=== PATIENT | female | born 1950 | race Caucasian/White ===

== ENCOUNTER → 2018-02-16 | Outpatient (CLI) | payer OTHER ==
[~2018-02-16] MED LIST: ALBUTEROL INH IH; FISH OIL 1,0001 EAC5 PO; LOVASTAT20 PO; SPIRIVA IH; SYMBICORT160 MCG/4. IH; VENTOLIN HFA INH8 GM INH; VITAMIN D32000 UNIT PO
== END ==
LOC: RAD 00:32
DX: Z12.31 Encounter for screening mammogram for malignant neoplasm of breast (principal)

== ENCOUNTER → 2019-02-23 | Outpatient (CLI) | payer OTHER | LOC: RAD 10:09 | DX: Z12.31 Encounter for screening mammogram for malignant neoplasm of breast (principal) ==

== ENCOUNTER → 2019-02-25 | Outpatient (CLI) | payer OTHER | LOC: ULTRA 02:00 | DX: N63.41 Unspecified lump in right breast, subareolar (principal) ==

== ENCOUNTER → 2021-08-22 | Outpatient (CLI) | payer OTHER | LOC: BC 09:53 | PROVIDERS: ATTEND Obstetrics & Gynecology | DX: Z12.31 Encounter for screening mammogram for malignant neoplasm of breast (principal) ==

== ENCOUNTER → 2021-08-29 | Outpatient (CLI) | payer OTHER | LOC: BC 09:33 | PROVIDERS: ATTEND Obstetrics & Gynecology | DX: N60.01 Solitary cyst of right breast (principal); N63.10 Unspecified lump in the right breast, unspecified quadrant; R92.0 Mammographic microcalcification found on diagnostic imaging of breast ==

== ENCOUNTER → 2021-09-10 | Outpatient (CLI) | payer OTHER ==
--- NOTE | 2021-09-12 17:06 | PATH ---
[facility] [place] [address] PATHOLOGY RPT PROCEDURE Name: ALEXIS JACQUES Room #: REG [facility] M..#: [id number] Admission: 09/10/21 Date of : 46 Discharge: Report #: [id number] Path Case #: [id number] L[facility] Accession Number: [id number] . 01 Material submitted: . breast - RIGHT BREAST CALCIFICATIONS. Modifiers: right . 01 Clinical history: . RIGHT BREAST CALCIFICATIONS . 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 - PROLIFERATIVE FIBROCYSTIC CHANGES WITH MARKEDLY DILATED DUCTS, STROMAL FIBROSIS, COLUMNAR CELL CHANGES, APOCRINE METAPLASIA, WELL FOCAL ATYPICAL DUCTAL HYPERPLASIA. - COARSE CALCIFICATIONS IDENTIFIED IN ASSOCIATION WITH ATYPICAL DUCTAL HYPERPLASIA. - Atypical ductal hyperplasia measures 1 mm, and 1.5 mm in two separate foci. - Negative for invasive malignancy (please see comment). . (IUV:mml; 09/11/2021) QLM 09/12/2021 1331 Local . 02 Comment: Examination shows marked proliferative fibrocystic changes including dilated ducts, stromal fibrosis, adenosis, apocrine metaplasia, columnar cell hyperplasia as well as focal usual ductal hyperplasia associated with atypia. A single contigous focus of ductal carcinoma in-situ is identified measuring 2.5 mm. . Properly-controlled p63 and Smooth Muscle Myosin heavy chain are performed on block A1 and show no evidence of invasion. . Properly-controlled CK5/6 performed on block A3 shows loss of the mosaic pattern within the DCIS. . Dr. Jake Cam has seen financial services representative slides of this case and concurs with the diagnosis. . Findings were discussed with Dr. Chirag Pizarro at 1:25 pm on 09/12/21[place] [address] PATHOLOGY RPT PROCEDURE Name: ALEXIS JACQUES Room #: REG CLI [facility]#: [id number] Admission: 09/10/21 Date of : 46 Discharge: Report #: [id number] Path Case #: [id number] (IUV:mml; 09/11/2021) . 02 Electronically signed: . Alejandra Penn MD, Pathologist NPI- [id number] . 01 Gross description: . The specimen is received in formalin, labeled "Alexis Jacques, right". The specimen is additionally labeled on the requisition as, "right lateral". Received within a plastic cassette are four needle cores of fibrofatty tissue measuring 3.2 x 2.7 x 0.6 cm in aggregate dimensions. The specimen is submitted entirely in cassettes A1 through A3. The cold ischemic time is seven minutes. The total formalin fixation time is 9 hours and 56 minutes. ([facility]; 09/10/2021) QAC/QAC 09/10/2021 1616 Local . 02 Pathologist provided ICD-10: D05.11, N60.31, N60.81, N60.11 . 02 CPT . 376282, G37559, L14888 Specimen Comment: A courtesy copy of this report has been sent to [phone] Specimen Comment: [phone], Specimen Comment: Report sent to , DR FALLON / DR QUEEN Performed at: 01 [facility] [address] [place] [address] [address], [place] [id number] MD Obed Son MD Phone: [phone] Performed at: [address] [id number] MD Alejandra Penn MD Phone: [phone]
== END | disposition home or self-care (01) ==
LOC: BC 11:06
PROVIDERS: ATTEND Obstetrics & Gynecology
DX: R92.1 Mammographic calcification found on diagnostic imaging of breast (principal); D05.11 Intraductal carcinoma in situ of right breast; N60.31 Fibrosclerosis of right breast; N60.81 Other benign mammary dysplasias of right breast; Z79.899 Other long term (current) drug therapy; Z88.8 Allergy status to other drugs, medicaments and biological substances

== ENCOUNTER → 2021-11-05 | Day surgery (SDC) | payer OTHER ==
[~2021-11-05] VITALS: Ht 170.2 cm; Wt 113.9 kg
[~2021-11-05] MED LIST changes: +ALBUTEROL2.5 MG/3 M INH; +BASAGLAR K100 UNIT/1 SUBQ; +COZAAR 25 MG TA25 M1 PO; +GLYBURIDE 5 MG T5 M1 PO; +METFORMIN HCL500 M3 PO; +METOPROLOL SUCC50 MG PO; +NORCO5 PO; +ROSUVASTATIN CA20 MG PO; +TRELEGY ELLIPT1 EACH INH; +VITAMIN C500 M1 PO; +VITAMIN D375 MCG PO; +ZINC50 M1 PO
[2021-11-05 09:02] VITALS: BP 155/71
--- NOTE | 2021-11-05 11:28 | EKG ---
[place] [address] [facility] [facility] [employer] [place] [address] ELECTROCARDIOGRAM REPORT Name: ALEXIS FUNEZ Room #: REG [facility].#: [id number] Admission: 11/05/21 Attend Phys: Mare Hernandes DO Discharge: Date of : 46 Report #: [id number] [facility] Test Date: 2021-11-05 Test Time: 09:07:02 Pat Name: ALEXIS FUNEZ Department: Room: Gender: F [employer]: NICKI : 1950 Requested By: Mare Hernandes Order Number: [id number] MD: Isra Gill Measurements Intervals [place] Rate: 77 P: 76 WV: 159 QRS: 14 QRSD: 95 T: 60 QT: 397 QTc: 450 Interpretive Statements Sinus rhythm Probable left atrial enlargement Abnormal R-wave progression, early transition Compared to ECG 07/27/2012 06:58:03 No significant changes Electronically Signed On 11-05-2021 11:28:02 [employer] by Isra Gill [email or web address] <ELECTRONICALLY SIGNED> By: Isra Gill MD, [facility] 11/05/21 1128 6 6 Isra Gill MD, FACC /EPI
[2021-11-05 14:17] VITALS: BP 155/71
[2021-11-05 14:20] VITALS: BP 155/71
--- NOTE | 2021-11-06 09:53 | O ---
[facility] [place] [place] [address] [address] OPERATIVE REPORT Name: ALEXIS FUNEZ Room #: REG [facility] M.Tim.#: [id number] Admission: 11/05/21 Attend Phys: Mare Hernandes DO Discharge: Date of : 46 Report #: [id number] THIS REPORT FOR: cc: Jeanie Fuentes MD,Jeanie Hernandes,Mare Barrera DO ~ DATE OF SERVICE: 11/05/2021 PREOPERATIVE DIAGNOSES: 1. Right breast ductal carcinoma in situ. 2. Right breast atypical ductal hyperplasia. POSTOPERATIVE DIAGNOSES: 1. Right breast ductal carcinoma in situ. 2. Right breast atypical ductal hyperplasia. PROCEDURE: 1. Right breast lumpectomy with wire localization. 2. PIPO catheter space saver placement. SURGEON: Mare Hernandes DO. ANESTHESIA: General endotracheal and local anesthetic. SPECIMENS: 1. Right breast lumpectomy (short stitch superior, long stitch lateral, double stitch anterior). 2. Additional inferior margin (stitch kaur new margin). INTRAOPERATIVE FINDINGS: Hemostasis was achieved. The specimen imaging did contain a wire and clip within good position within the middle of the specimen. The PIPO balloon spacer was filled to 40 mL of sterile saline, 5 mL were removed for patient comfort, leaving 35 mL within the balloon. ESTIMATED BLOOD LOSS: 20 mL COMPLICATIONS: None. INDICATIONS FOR PROCEDURE: The patient is a 70-year-old female who was seen and evaluated in my office for atypical findings on her mammogram. A core needle biopsy was performed, which demonstrated evidence of DCIS and atypical ductal hyperplasia. The patient was seen and evaluated. She was deemed a candidate for PIPO catheter placement. She did see Dr. iRos with Medical Oncology and Dr. Hernandez with Radiation Oncology and again was deemed an appropriate candidate for PIPO catheter radiation. The patient was explained the procedure, including risks, benefits and alternatives. All questions were answered to the patient's [facility] [place] [place] [address] [place] [address] OPERATIVE REPORT Name: ALEXIS FUNEZ Room #: REG [facility].#: [id number] Admission: 11/05/21 Attend Phys: Mare Hernandes DO Discharge: Date of : 46 Report #: [id number] satisfaction. Informed consent was obtained. DESCRIPTION OF PROCEDURE: After the patient was brought back to the operating room and placed in supine position. General anesthesia was induced. SCDs were placed on bilateral extremities and prophylactic antibiotics were administered. Next, the right breast and chest were prepped and draped in the usual sterile fashion. After a timeout was performed, the right breast was inspected with wire noted to be in good position. A 4 cm incision was created longitudinally near the needle. Dissection was carried down to subcutaneous tissues using Bovie cautery. The needle was then from the wire and the wire remained in place. Next, this dissection continued deep within the breast wound, angling in the direction of the wire towards the medial inferior nipple. At this point, the specimen was grasped with an Allis clamp and circumferential dissection was performed. There was noted to be liquified fat within this area. The dissection was carried out circumferentially. There was noted to be dense fibrous tissue as well as a fat that would liquefy with Bovie cautery. The specimen was once freely moved was marked with a silk suture, marking the short stitch superior, long stitch lateral, and double stitch anterior. The specimen was then placed with on a board and sent to Radiology for mammography, which did demonstrate the clip to be in good position within the middle of the specimen as well as visualized calcifications within the specimen itself as well. At this time, the wound was then copiously irrigated. There was an area of dense fibrinous tissue along the inferior aspect where the mass was located. This was grasped and additional margin was sent for an inferior margin with stitch marking new margin. The wound again was irrigated. Hemostasis was noted to be achieved. At this time, the long axis of the cavity was noted to be 5 cm. The width and depth of the cavity was noted to be 3 cm each. At this time, approximately 4.5 cm from the medial aspect of the specimen cavity, I created a 1.5 cm incision and the PIPO space saver sheath was then placed. The catheter was then placed and the sheath was removed. The spacer balloon was then filled with 30 mL of saline. An additional 10 mL of saline were also injected, noting a total of 40 mL of sterile saline appeared to fill the specimen cavity. At this time, the balloon was deflated. Above the cavity was closed in a layered fashion with 3-0 Vicryl as well as a 4-0 Monocryl in a subcuticular manner. At this time, the catheter was then reinflated with 40 mL of sterile saline. This did seem to fill the breast cavity and was not allowed to twist. Therefore, 5 mL were removed for patient comfort, keeping 35 mL within the balloon itself. At this time, the skin was then cleaned and ABD was placed bidirectionally over the catheter. The spacer tip was then wrapped with 4 x 4's, and covered with 4 x 4's, and tape. The patient tolerated the procedure well without any complications. All sponge and instrument count was reported as correct at the [address] [address] OPERATIVE REPORT Name: ALEXIS FUNEZ [id number] Admission: 11/05/21 Attend Phys: Mare Hernandes DO Discharge: Date of : 46 Report #: [id number] end of the case. She was awakened from anesthesia in the operating room and taken to the PACU in stable condition for further recovery. <ELECTRONICALLY SIGNED> By: Mare Hernandes DO 11/06/21 0953 1300 1320 Mare Hernandes DO /nt
--- NOTE | 2021-11-07 11:07 | PATH ---
[facility] [place] [address] PATHOLOGY RPT PROCEDURE Name: ALEXIS JACQUES Room #: REG [facility] M.R.#: [id number] Admission: 11/05/21 Date of : 46 Discharge: Report #: [id number] Path Case #: [id number] LCA Accession Number: [id number] . 01 Material submitted: . PART A: breast - RIGHT BREAST LUMPECTOMY. Modifiers: right PART B: breast - ADDITIONAL INFERIOR MARGIN. Modifiers: right, inferior . 01 Clinical history: . RIGHT DUCTAL CARCINOMA IN SITU,ATYPICAL DUCTAL HYPERPLASIA . 02 Diagnosis: A. Right breast lumpectomy: - No residual ductal carcinoma in situ identified. - Focal atypical ductal hyperplasia, extensive fibrocystic changes, biopsy site changes, usual ductal hyperplasia, radial sclerosing lesion, columnar cell hyperplasia, apocrine metaplasia, calcification within benign duct and extensively cauterized margins with usual ductal hyperplasia . . B. Additional inferior margin, excision: - Breast with extensive fibrocystic changes. - All margins are negative for ductal carcinoma in situ, atypical ductal hyperplasia or malignancy. . (ANK:[facility]; 11/06/2021) MBR 11/07/2021 1029 Local . 02 Comment: Immunohistochemical stains are performed on block A1 and show the following results: . Smooth muscle myosin heavy chain: P63:intact myoepithelial cell layer Ck5-6: positive,diffuse SMMHC: intact myoepithelial cell layer . No residual DCIS present. Rare foci of ADH is present . The inferior cauterized margin has proliferative ducts which are likely exuberant usual ductal hyperplasia. . . . This case has been co-reviewed with Dr. Lawrence Daniel who agrees with my diagnosis on 11/06/2021. . (ANK:merlene; 11/06/2021) [address] [address] PATHOLOGY RPT PROCEDURE Name: ALEXIS JACQUESN Room #: REG [facility].#: [id number] Admission: 11/05/21 Date of : 46 Discharge: Report #: [id number] Path Case #: [id number] . 02 Electronically signed: . Delma Pompa MD, Pathologist NPI- [id number] . 01 Gross description: . A. Fixative: Formalin Labeled: Right breast lumpectomy, short stitch-superior, long-lateral, double anterior margin Specimen received: Intact with a needle localization wire in place (localization wires ends in slice 3) Oriented: Short stitch superior, long stitch lateral, double-anterior margin Weight: 13 g Dimensions: 4.3 cm superior to inferior x 3.5 medial to lateral x 1.9 cm superficial to deep . The specimen is inked as follows: superior-red inferior-blue superficial-green deep-black lateral-orange medial-yellow . Sectioned from: Inferior to superior Number of slices: 9 Lesion #1: 0.9 x 0.9 x 0.7 cm Lesion located in slices 4-6 . Lesion #1 to margins: 0.7 cm to superior 0.9 cm to inferior Suspicious for involving the superficial 1.1 cm to deep 0.4 cm to lateral 1.4 cm to medial . Lesion #2 distance from Lesion #1: 0.7 cm. If Lesion #1 and lesion #2 are contiguous then the new dimensions of the lesion would be 2.0 x 1.2 x 0.9 cm Lesion #2: 0.9 x 0.7 x 0.7 cm Lesion #2 location in slices 6-7 . Lesion #2 to margins: 1.3 cm to superior 1.4 cm to inferior 0.2 cm to superficial [address] [address] PATHOLOGY RPT PROCEDURE Name: ALEXIS JACQUES Room #: REG [facility] M..#: [id number] Admission: 11/05/21 Date of : 46 Discharge: Report #: [id number] Path Case #: [id number] 0.6 cm to deep 1.2 cm to lateral 0.2 cm to medial . Lesion #3 is located approximately 0.3 cm superior from lesion #2, and 1.4 cm superior from lesion #1. If lesions #2 and #3 are contiguous then the new dimensions of the lesion would be 1.4 x 1.3 x 1.0 cm Lesion #3: 1.0 x 0.7 x 0.4 cm Lesion #3 located in slices 7-9 . Lesion #3 to margins: 0.5 cm to superior 1.8 cm to inferior 0.2 cm to superficial 0.6 cm to deep 1.1 cm to lateral 0.7 cm to medial . Lesion #4: 2.0 x 1.0 x 0.8 cm Lesion #4 located in slices 1-2 . Lesion #4 to margins: 0.3 cm to superior Abuts the inferior margin Abuts the superficial margin 0.7 cm to deep 0.5 cm to lateral 1.2 cm to medial . Biopsy clip: Not identified Uninvolved breast parenchyma: Fatty and homogenous with less than 5% fibrous tissue . The specimen is submitted sequentially from inferior to superior as follows: A1-A4: Slice 1 to show Lesion #4, entirely submitted A5-A6: Slice 2 to show lesions #4, entirely submitted A7-A8: slice 3, section with the end of the needle localization wire, entirely submitted A9-A10: Slice 4, entirely submitted to include lesion #1, represented A11-A12: slice 7, entirely submitted to include lesion #2, represented and to show proximity to lesion #3 in A12 A13: Slice 8, entirely submitted to include lesion #3, represented A14: Slice 9, represented to include lesion #3, represented . Cold ischemic time: 20 minutes Total time in formalin: [address] [address] PATHOLOGY RPT PROCEDURE Name: ALEXIS JACQUES Room #: [facility].R.#: [id number] Admission: 11/05/21 Date of : 46 Discharge: Report #: [id number] Path Case #: [id number] . B. The specimen is received in formalin, labeled "Alexis Jacques, additional inferior margin stitch kaur new margin". The specimen consists of a 1 g fatty, slightly concave tissue (2.0 x 1.3 x 1.0 cm) which has been previously oriented with a stitch designating the new/true margin (inked black). Sectioning reveals fatty and homogenous cut surfaces with minimal fibrous tissue (less than 5%). The specimen is serially sectioned and submitted sequentially, entirely in B1-B4. The cold ischemic time is less than 60 seconds. The total time in formalin is 9 hours. ([facility]; 11/05/2021) DKA/DKA 11/05/2021 1837 Local . 02 Pathologist provided ICD-10: N60.81, N60.11, N62 . 02 CPT . 879970, 531004, Z88606, Y56957 Specimen Comment: A courtesy copy of this report has been sent to [phone] Specimen Comment: [phone] Specimen Comment: Report sent to / DR QUEEN Performed at: [address], [place], [place] [id number] MD Obed Son MD Phone: [phone] Performed at: [address] [id number] MD Delma Pompa MD Phone: [phone]
== END | disposition home or self-care (01) ==
LOC: OR 07:45
PROVIDERS: ATTEND Surgery
DX: D05.11 Intraductal carcinoma in situ of right breast (principal); N60.91 Unspecified benign mammary dysplasia of right breast; R92.1 Mammographic calcification found on diagnostic imaging of breast; I10 Essential (primary) hypertension; E11.9 Type 2 diabetes mellitus without complications; E78.00 Pure hypercholesterolemia, unspecified; J43.9 Emphysema, unspecified; Z98.890 Other specified postprocedural states; Z79.899 Other long term (current) drug therapy; Z20.822 Contact with and (suspected) exposure to COVID-19; Z87.891 Personal history of nicotine dependence; Z90.49 Acquired absence of other specified parts of digestive tract; Z90.710 Acquired absence of both cervix and uterus; Z88.8 Allergy status to other drugs, medicaments and biological substances
CPT/HCPCS: 19301; 19281; 19499; A4648; 50010; 50101; 50386; 50403; 50914; 54118; 55415; 56524; 56526; 58585; 62110; 62900; 70005